=== PATIENT | female | born 1995 | race Caucasian/White ===

== ENCOUNTER 2017-10-28 01:25 | Emergency (ER) | payer OTHER ==
--- NOTE | 2017-10-28 01:33 | EDPHY ---
H & P Time Seen by Provider: 10/28/17 01:31 HPI/ROS: Chief Complaint: Alcohol intoxication, vomiting HPI: 22 year old woman who was out celebrating her birthday with friends trey. She had multiple shots of vodka. Patient became nauseated and vomited in the bathroom of the bar. EMS was called. She denies any falls or injuries. Admits to multiple alcoholic drinks. Has been in the company of friends all evening. Denies other medical problems. Currently is without complaint. ROS: 10 systems were reviewed and were negative except those elements noted in the HPI. PMH: Denies Social History: No smoking, occasional alcohol, no recreational drug use Family History: non-contributory Physical Exam: Gen: Awake, Alert, slurred speech, smells of alcohol in emesis HEENT: Nose: no rhinorrhea Eyes: PERRLA, EOMI Mouth: Moist mucosa Neck: Supple, no JVD Chest: nontender, lungs clear to auscultation Heart: S1, S2 normal, no murmur Abd: Soft, non-tender, no guarding Back: no CVA tenderness, no midline tenderness Ext: no edema, non-tender Skin: no rash Neuro: CN II-XII intact, Sensation grossly intact, Strength 5/5 in bilateral upper and lower extremities Constitutional: Initial Vital Signs Temperature (C) 36.8 C 10/28/17 01:32 Heart Rate 95 10/28/17 01:32 Respiratory Rate 20 10/28/17 01:32 Blood Pressure 136/85 H 10/28/17 01:32 O2 Sat (%) 94 10/28/17 01:32 O2 Delivery Mode Room Air O2 (L/minute) 2 Allergies/Adverse Reactions: No Known Allergies Allergy (Unverified 10/28/17 01:31) Home Medications: Medication Instructions Recorded NK [No Known Home Meds] 10/28/17 Medical Decision Making ED Course/Re-evaluation: Patient is now awake and appropriate. Ambulating unassisted to the bathroom. No current complaints. Patient is tolerating oral fluids. Patient is ready for discharge with sober ride. Departure - Departure Disposition: Home, Routine, Self-Care Clinical Impression: Alcoholic intoxication Condition: Good Instructions: Alcohol Intoxication (ED) Referrals: Patient,NotPresent [Unknown] - As per Instructions
[2017-10-28 04:12] VITALS: BP 132/82
== END 2017-10-28 04:45 | disposition home or self-care (01) ==
DX: F10.929 Alcohol use, unspecified with intoxication, unspecified (principal); R11.10 Vomiting, unspecified